=== PATIENT | male | born 1965 | race Caucasian/White ===

== ENCOUNTER 2018-09-16 07:28 | Emergency (ER) | payer MEDICAID, OTHER ==
[~2018-09-16] VITALS: Ht 180.3 cm; Wt 64.5 kg
[~2018-09-16 07:28] MED LIST: CIPR500T89 PO; FLAG500T PO; no historical meds
[2018-09-16 08:23] VITALS: BP 158/89
== END 2018-09-16 08:32 | disposition home or self-care (01) ==
LOC: M ED 07:28
DX: R19.5 Other fecal abnormalities (principal); Z87.19 Personal history of other diseases of the digestive system; Z91.030 Bee allergy status; F17.210 Nicotine dependence, cigarettes, uncomplicated

== ENCOUNTER → 2018-09-19 | Outpatient (REF) | payer MEDICAID | LOC: M LAB REF 10:39 | PROVIDERS: ATTEND Physician Assistant Medical | DX: R19.7 Diarrhea, unspecified (principal) ==